=== PATIENT | female | born 1995 | race Caucasian/White ===

== ENCOUNTER 2018-08-19 15:31 | Outpatient (CLI) | payer MEDICAID | END 2018-08-19 19:50 | disposition home or self-care (01) | LOC: OBT 15:31 → L-D 15:33 → OBT 19:50 | DX: O62.9 Abnormality of forces of labor, unspecified (principal); Z3A.37 37 weeks gestation of pregnancy | CPT/HCPCS: Z7500 ==

== ENCOUNTER 2018-09-09 13:43 | Inpatient (IN) | payer MEDICAID ==
[2018-09-09] MEDS ORDERED: CARBOPROST 250 MCG INJ IM (16:30)
[2018-09-09] MEDS ORDERED: METHYLERGONOVINE 0.2 MG INJ IM (16:30)
[2018-09-09] MEDS ORDERED: IBUPROFEN 600 MG TAB PO (16:30)
[2018-09-09] MEDS ORDERED: OXYTOCIN 30 UNITS/LR 500 ML IV ×2 (16:30)
[2018-09-09] MEDS ORDERED: MISOPROSTOL 200 MCG TAB PR (16:30)
[2018-09-09] MEDS ORDERED: LIDOCAINE 1% (MPF) 30 ML INJ INJ (16:30)
[2018-09-09] MEDS: LACTATED RINGER'S 1,000 ML IV ×2 (17:19→19:57)
[2018-09-09 17:29] LABS: ADD MAN DIFF? NO
[2018-09-09 17:31] LABS: BASOPHILS % 0.3 % (0.0-2.0); EOSINOPHILS # 0.1 10^3/ul (0.0-0.5); HEMATOCRIT 32.6 % (37.0-47.0); HEMOGLOBIN 10.4 g/dl (12.0-16.0); LYMPHOCYTES # 1.9 10^3/ul (0.8-2.9); LYMPHOCYTES % 31.6 % (15.0-51.0); MEAN CORPUSCULAR HEMOGLOBIN 26.3 pg (29.0-33.0); MEAN CORPUSCULAR HGB CONC 31.9 g/dl (32.0-37.0); MEAN CORPUSCULAR VOLUME 82.5 fl (82.0-101.0); MEAN PLATELET VOLUME 10.7 fl (7.4-10.4); MONOCYTE # 0.6 10^3/ul (0.3-0.9); MONOCYTES % 9.9 % (0.0-11.0); NEUTROPHIL # 3.4 10^3/ul (1.6-7.5); NEUTROPHILS % 56.9 % (39.0-77.0); PLATELET COUNT 330 10^3/UL (140-415); RED BLOOD COUNT 3.95 10^6/ul (4.20-5.40); RED CELL DISTRIBUTION WIDTH 13.4 % (11.5-14.5)
[2018-09-09 18:35] LABS: HEPATITIS B SURFACE ANTIGEN NEGATIVE (NEGATIVE)
[2018-09-09 18:54] LABS: PARTIAL THROMBOPLASTIN TIME 28.1 Sec (23.0-35.0)
[2018-09-09 19:04] LABS: INR 1.01; PROTIME 13.4 Sec (11.9-14.9)
[2018-09-10] MEDS: LACTATED RINGER'S 1,000 ML IV ×3 (09:23→17:15)
[2018-09-10] MEDS: OXYTOCIN 30 UNITS/LR 500 ML IV ×3 (11:33→19:05)
[2018-09-10] MEDS: CEFAZOLIN 2 GM/50 ML (PMX) 50 ML IVPB (13:30)
[2018-09-10] MEDS ORDERED: FENTAnyl 50 MCG/ML VIAL (13:49)
[2018-09-10] MEDS ORDERED: morphine SULFATE/PF (10 MG/10 ML) INJ (13:49)
[2018-09-10] MEDS ORDERED: METOCLOPRAMIDE 10 MG INJ (13:49)
[2018-09-10] MEDS ORDERED: OXYTOCIN 10 UNIT INJ ×2 (13:49→13:50)
[2018-09-10] MEDS ORDERED: PHENYLephrine (100 MCG/ML) 5ML SYG (13:50)
[2018-09-10] MEDS: CEFAZOLIN 2 GM in SOD CHLORIDE 0.9% 50 ML IVPB (13:59)
[2018-09-10] MEDS ORDERED: FENTAnyl 50 MCG/ML VIAL IV ×3 (15:00)
[2018-09-10] MEDS ORDERED: TRIMETHOBENZAMIDE 100 MG/ML VIAL IM ×2 (15:00)
[2018-09-10] MEDS ORDERED: morphine 2 MG INJ IV ×2 (15:00)
[2018-09-10] MEDS ORDERED: MEPERIDINE 25 MG INJ IV (15:00)
[2018-09-10] MEDS ORDERED: IPRATROPIUM (NEB) 0.5 MG/2.5 ML AMP HHN (15:00)
[2018-09-10] MEDS ORDERED: ONDANSETRON 4 MG INJ IV (15:00)
[2018-09-10] MEDS ORDERED: hydrALAzine 20 MG INJ IV (15:00)
[2018-09-10] MEDS ORDERED: NALOXONE (0.4 MG/ML) INJ IV (15:00)
[2018-09-10] MEDS ORDERED: ALBUTEROL 0.083% (NEB) 2.5 MG/3 ML AMP HHN (15:00)
[2018-09-10] MEDS ORDERED: DIPHENHYDRAMINE 50 MG INJ IV ×2 (15:00)
[2018-09-10] MEDS ORDERED: MIDAZOLAM 1 MG/ML 2 ML INJ IV (15:00)
[2018-09-10] MEDS ORDERED: LABETALOL HCL 20MG INJ IV (15:00)
[2018-09-10] MEDS ORDERED: OXYCODONE/ACETAMINOPHEN (5/325) TAB PO ×2 (15:00)
[2018-09-10] MEDS ORDERED: NALBUPHINE HCL (10 MG/1 ML) INJ IV (15:00)
[2018-09-10] MEDS ORDERED: HYDROmorphONE 1 MG/5 ML IV SYRINGE IV ×3 (15:00)
[2018-09-10] MEDS ORDERED: EPHEDrine SULFATE 50 MG/5 ML SYG IV (15:00)
[2018-09-10] MEDS ORDERED: OXYTOCIN 30 UNITS/LR 500 ML IV (17:30)
[2018-09-10] MEDS ORDERED: CARBOPROST 250 MCG INJ IM (17:30)
[2018-09-10] MEDS ORDERED: MISOPROSTOL 200 MCG TAB PR (17:30)
[2018-09-10] MEDS ORDERED: METHYLERGONOVINE 0.2 MG INJ IM (17:30)
[2018-09-10] MEDS: KETOROLAC 30 MG INJ IV (17:48)
[2018-09-10 20:39] LABS: RAPID PLASMA REAGIN NONREACTIVE (NR)
[2018-09-10] MEDS: ONDANSETRON 4 MG INJ IV (20:39)
[2018-09-10] MEDS: SENNA/DOCUSATE NA (8.6MG/50MG) TAB PO (21:00)
[2018-09-11] MEDS: LACTATED RINGER'S 1,000 ML IV ×2 (03:42→11:51)
[2018-09-11 04:59] LABS: ADD MAN DIFF? NO
[2018-09-11 05:06] LABS: BASOPHILS % 0.3 % (0.0-2.0); EOSINOPHILS % 0.1 % (0.0-7.0); HEMATOCRIT 22.7 % (37.0-47.0); HEMOGLOBIN 7.3 g/dl (12.0-16.0); LYMPHOCYTES # 1.5 10^3/ul (0.8-2.9); LYMPHOCYTES % 16.4 % (15.0-51.0); MEAN CORPUSCULAR HEMOGLOBIN 26.7 pg (29.0-33.0); MEAN CORPUSCULAR HGB CONC 32.2 g/dl (32.0-37.0); MEAN CORPUSCULAR VOLUME 83.2 fl (82.0-101.0); MEAN PLATELET VOLUME 10.8 fl (7.4-10.4); MONOCYTE # 0.5 10^3/ul (0.3-0.9); MONOCYTES % 5.7 % (0.0-11.0); NEUTROPHIL # 6.9 10^3/ul (1.6-7.5); NEUTROPHILS % 77.2 % (39.0-77.0); PLATELET COUNT 248 10^3/UL (140-415); RED BLOOD COUNT 2.73 10^6/ul (4.20-5.40); RED CELL DISTRIBUTION WIDTH 13.7 % (11.5-14.5)
[2018-09-11] MEDS: SENNA/DOCUSATE NA (8.6MG/50MG) TAB PO ×2 (08:11→21:24)
[2018-09-11] MEDS: KETOROLAC 30 MG INJ IV ×2 (08:11→13:50)
[2018-09-11] MEDS: IBUPROFEN 800 MG TAB PO ×2 (14:00→21:24)
[2018-09-11] MEDS: OXYCODONE/ACETAMINOPHEN (5/325) TAB PO (17:41)
[2018-09-11] MEDS: FERROUS SULFATE (EC) 325 MG TAB PO (21:24)
[2018-09-12] MEDS: LANOLIN HPA 1 PKT TOP (02:55)
[2018-09-12 05:14] LABS: ADD MAN DIFF? NO
[2018-09-12 05:17] LABS: WHITE BLOOD COUNT 7.4 10^3/ul (4.8-10.8)
[2018-09-12 05:17] LABS: BASOPHILS % 0.3 % (0.0-2.0); EOSINOPHILS # 0.1 10^3/ul (0.0-0.5); EOSINOPHILS % 1.3 % (0.0-7.0); HEMATOCRIT 21.8 % (37.0-47.0); LYMPHOCYTES # 2.5 10^3/ul (0.8-2.9); LYMPHOCYTES % 34.1 % (15.0-51.0); MEAN CORPUSCULAR HEMOGLOBIN 27.1 pg (29.0-33.0); MEAN CORPUSCULAR HGB CONC 32.1 g/dl (32.0-37.0); MEAN CORPUSCULAR VOLUME 84.5 fl (82.0-101.0); MEAN PLATELET VOLUME 10.7 fl (7.4-10.4); MONOCYTE # 0.7 10^3/ul (0.3-0.9); MONOCYTES % 9.6 % (0.0-11.0); NEUTROPHILS % 54.3 % (39.0-77.0); PLATELET COUNT 261 10^3/UL (140-415); RED BLOOD COUNT 2.58 10^6/ul (4.20-5.40)
[2018-09-12] MEDS: IBUPROFEN 800 MG TAB PO ×3 (05:37→22:30)
[2018-09-12] MEDS: SENNA/DOCUSATE NA (8.6MG/50MG) TAB PO ×2 (09:51→20:59)
[2018-09-12] MEDS: FERROUS SULFATE (EC) 325 MG TAB PO ×3 (09:51→20:59)
[2018-09-12 11:56] LABS: RUBELLA ANTIBODY - IGG 4.16 index
[2018-09-12] MEDS: OXYCODONE/ACETAMINOPHEN (5/325) TAB PO ×2 (11:59→19:57)
[2018-09-12] MEDS: FOLIC ACID 1 MG TAB PO (18:15)
[2018-09-13 05:22] LABS: ADD MAN DIFF? NO
[2018-09-13 05:43] LABS: WHITE BLOOD COUNT 7.6 10^3/ul (4.8-10.8)
[2018-09-13 05:43] LABS: BASOPHILS % 0.5 % (0.0-2.0); EOSINOPHILS # 0.2 10^3/ul (0.0-0.5); HEMATOCRIT 23.4 % (37.0-47.0); HEMOGLOBIN 7.2 g/dl (12.0-16.0); LYMPHOCYTES # 3.1 10^3/ul (0.8-2.9); LYMPHOCYTES % 40.4 % (15.0-51.0); MEAN CORPUSCULAR HEMOGLOBIN 26.3 pg (29.0-33.0); MEAN CORPUSCULAR HGB CONC 30.8 g/dl (32.0-37.0); MEAN CORPUSCULAR VOLUME 85.4 fl (82.0-101.0); MEAN PLATELET VOLUME 10.8 fl (7.4-10.4); MONOCYTE # 0.8 10^3/ul (0.3-0.9); MONOCYTES % 10.1 % (0.0-11.0); NEUTROPHIL # 3.5 10^3/ul (1.6-7.5); NEUTROPHILS % 45.5 % (39.0-77.0); PLATELET COUNT 302 10^3/UL (140-415); RED BLOOD COUNT 2.74 10^6/ul (4.20-5.40); RED CELL DISTRIBUTION WIDTH 14.9 % (11.5-14.5)
[2018-09-13] MEDS: IBUPROFEN 800 MG TAB PO ×2 (05:47→14:19)
[2018-09-13] MEDS: DIPHTH/TET/ACEL PERTUSS (ADULT) 0.5 ML VIAL IM* (09:42)
[2018-09-13] MEDS: SENNA/DOCUSATE NA (8.6MG/50MG) TAB PO (09:59)
[2018-09-13] MEDS: FERROUS SULFATE (EC) 325 MG TAB PO ×2 (09:59→12:59)
[2018-09-13] MEDS: FOLIC ACID 1 MG TAB PO (10:00)
[2018-09-13] MEDS: OXYCODONE/ACETAMINOPHEN (5/325) TAB PO (15:50)
[2018-09-15 12:22] LABS: RUBELLA ANTIBODY - IGM <20.00 AU/mL
== END 2018-09-13 21:15 | disposition home or self-care (01) | DRG 788 ==
LOC: OBT 13:43 → L-D 09-10 02:38 → PP1 09-13 17:40 → L-D 13:44 → OBT 16:20 → L-D 16:20 → MS1 09-10 20:54
PROVIDERS: Obstetrics & Gynecology
PROC: 10D00Z1 Extraction of Products of Conception, Low, Open Approach (ICD-10-PCS; principal; 2018-09-10 13:30)
DX: O76 Abnormality in fetal heart rate and rhythm complicating labor and delivery (principal); Z37.0 Single live birth; Z3A.40 40 weeks gestation of pregnancy; Z23 Encounter for immunization
CPT/HCPCS: 76815; 76818; 85025; 85610; 85730; 86592; 86762; 86850; 86900; 86901; 87340; 88307; 90686; 90715; 99464

== ENCOUNTER 2019-03-26 09:21 | Emergency (ER) | payer MEDICAID ==
[2019-03-26] MEDS: METHOCARBAMOL 500 MG TAB PO (09:48)
[2019-03-26] MEDS: IBUPROFEN 600 MG TAB PO (09:49)
[2019-03-26] MEDS ORDERED: DIPHENHYDRAMINE 50 MG CAP PO (10:00)
== END 2019-03-26 10:17 | disposition home or self-care (01) ==
LOC: FTE 10:17
DX: M54.5 Low back pain (principal)
CPT/HCPCS: 81003; 81025; 99283